=== PATIENT | female | born 1950 | race Caucasian/White ===

== ENCOUNTER 2020-12-09 10:20 | Emergency (ER) | payer MEDICARE ==
[~2020-12-09] VITALS: Ht 165.1 cm; Wt 65.8 kg
[2020-12-09 10:36] VITALS: BP 145/69
--- NOTE | 2020-12-09 10:41 | NUR ---
IRENE AND COVID SWAB SENT TO LAB
[2020-12-09 11:19] VITALS: BP 145/69
--- NOTE | 2020-12-09 11:21 | NUR ---
Patient discharged with v/s stable. Written and verbal after care instructions given and explained. Patient alert, oriented and verbalized understanding of instructions. Ambulatory with steady gait. All questions addressed prior to discharge. ID band removed. Patient advised to follow up with PMD. Rx of prednisone 20mg PO for 5 days given. Patient educated on indication of medication including possible reaction and side effects. Opportunity to ask questions provided and answered.
== END 2020-12-09 11:21 | disposition home or self-care (01) ==
LOC: MED 10:20
DX: R06.02 Shortness of breath (principal); R05 Cough; R07.9 Chest pain, unspecified; I10 Essential (primary) hypertension; Z90.49 Acquired absence of other specified parts of digestive tract; Z20.828 Contact with and (suspected) exposure to other viral communicable diseases
CPT/HCPCS: 87426; 99283; U0003

== ENCOUNTER 2022-03-06 11:59 | Emergency (ER) | payer MEDICARE ==
[~2022-03-06] VITALS: Ht 167.6 cm; Wt 94.3 kg
[2022-03-06 12:16] VITALS: BP 151/102
--- NOTE | 2022-03-06 12:25 | NUR ---
PT AMB TO BED 5.
[2022-03-06] MEDS ORDERED: ONDANSETRON 4 MG/2 ML VIAL IVP ONE (12:40)
[2022-03-06] MEDS ORDERED: NACL 0.9% 1,000 ML IV SCH (12:40)
[2022-03-06] MEDS ORDERED: KETOROLAC 15 MG/ML VIAL IVP ONE (12:40)
[2022-03-06] MEDS ORDERED: PANTOPRAZOLE 40 MG INJ VIAL IVP ONE (12:40)
--- NOTE | 2022-03-06 12:47 | NUR ---
71 Y/O F BIB SELF C/O ABD PAIN 07/04, C/O N/V X 3 DAYS. ALLERGIES: PENECILLIN PMH: HTN, HYPOTHYRODISM
--- NOTE | 2022-03-06 13:00 | NUR ---
LAB AT BEDSIDE.
[2022-03-06 13:04] LABS: BASOPHILS # (AUTO) 0.1 K/uL (0.00-0.22); BASOPHILS % (AUTO) 0.5 % (0.0-2.0); EOSINOPHILS # (AUTO) 0.3 K/uL (0-0.4); EOSINOPHILS % (AUTO) 2.5 % (0.0-4.0); HEMATOCRIT 41.8 % (36-48); HEMOGLOBIN 14.2 g/dL (12.0-16.0); LYMPHOCYTES # (AUTO) 1.9 K/uL (2.5-16.5); LYMPHOCYTES % (AUTO) 17.5 % (20.5-51.1); MEAN CORPUSCULAR HEMOGLOBIN 33 pg (27-31); MEAN CORPUSCULAR HGB CONC 34 g/dL (33-37); MEAN CORPUSCULAR VOLUME 95.9 fL (80-94); MONOCYTES # (AUTO) 1.1 K/uL (0.8-1.0); NEUTROPHILS # (AUTO) 7.7 K/uL (1.8-7.7); NEUTROPHILS % (AUTO) 69.5 % (42.2-75.2); PLATELET COUNT (AUTO) 271 K/uL (140-450); RED BLOOD CELL COUNT(AUTO) 4.36 MIL/uL (4.20-5.40); RED CELL DISTRIBUTION WIDTH 13.6 % (11.6-13.7)
--- NOTE | 2022-03-06 13:10 | NUR ---
ULTRASAUND AT BEDSIDE.
[2022-03-06 13:29] LABS: ALBUMIN 3.8 g/dL (3.4-5.0); AMYLASE 27 U/L (25-115); ANION GAP 15.6 (8-16); ASPARTATE AMINOTRANSFERASE 19 U/L (15-37); CHLORIDE 96 mmol/L (98-107); GLUCOSE 98 mg/dL (74-106); LIPASE 48 U/L (73-393); POTASSIUM 3.6 mmol/L (3.5-5.1); SODIUM SERUM 131 mmol/L (136-145); TOTAL BILIRUBIN 0.5 mg/dL (0.0-1.0); UREA NITROGEN, BLOOD 18 mg/dL (7-18)
--- NOTE | 2022-03-06 13:56 | NUR ---
DR LEARY AT BEDSIDE
[2022-03-06] MEDS ORDERED: DICYCLOMINE HCL LIQUID 20 MG, ALUMINUM HYD/MAG/SIMETHICONE 30 ML, LIDOCAINE VISCOUS 2% ... PO ONE ×3 (14:00)
[2022-03-06] MEDS ORDERED: MORPHINE SULFATE 4 MG/ML SYR IVP ONE (14:00)
[2022-03-06] MEDS ORDERED: DICYCLOMINE HCL LIQUID 10 MG/5 ML UDC ONE ×2 (14:16→14:20)
[2022-03-06] MEDS ORDERED: ALUMINUM HYD/MAG/SIMETHICONE 30 ML UDC ONE ×3 (14:16→14:27)
[2022-03-06] MEDS ORDERED: ONDA-188 SL (15:14)
[2022-03-06] MEDS ORDERED: MAG-27 PO (15:14)
[2022-03-06 15:22] VITALS: BP 159/87
--- NOTE | 2022-03-06 16:26 | NUR ---
Patient discharged with v/s stable. Written and verbal after care instructions ABOUT GASTRITIS AND ABDOMINAL PAIN given and explained. Patient alert, oriented and verbalized understanding of instructions. Ambulatory with steady gait. All questions addressed prior to discharge. ID band removed. Patient advised to follow up with PMD. Rx of MYLANTA AND ODANSETRON given. Patient educated on indication of medication including possible reaction and side effects. Opportunity to ask questions provided and answered.
== END 2022-03-06 16:26 | disposition home or self-care (01) ==
LOC: MED 11:59
DX: K29.70 Gastritis, unspecified, without bleeding (principal); I10 Essential (primary) hypertension; Z79.899 Other long term (current) drug therapy
CPT/HCPCS: 36415; 76705; 80053; 81002; 82150; 83690; 84484; 85025; 93005; 96361; 96374; 96375; 99285; C9113; J1885; J2270; J2405; J7030; Q0092